=== PATIENT | male | born 1980 | race Asian ===

== ENCOUNTER 2019-07-10 23:56 | Emergency (ER) | payer MEDICAID ==
[~2019-07-10] VITALS: Ht 185.4 cm; Wt 105.4 kg
[2019-07-11 00:16] VITALS: BP 150/100
== END 2019-07-11 04:50 | disposition left against medical advice (07) ==
LOC: ED 23:56
DX: Z53.21 Procedure and treatment not carried out due to patient leaving prior to being seen by health care provider (principal)